=== PATIENT | male | born 1955 | race Caucasian/White ===

== ENCOUNTER → 2019-09-03 | Outpatient (CLI) | payer MEDICARE, OTHER | LOC: M.CT 10:40 | DX: I71.2 Thoracic aortic aneurysm, without rupture (principal); I25.10 Atherosclerotic heart disease of native coronary artery without angina pectoris; J98.4 Other disorders of lung ==

== ENCOUNTER 2020-04-12 09:22 | Inpatient (IN) | payer MEDICARE, OTHER ==
[~2020-04-12] VITALS: Ht 170.2 cm; Wt 99.3 kg
[2020-04-12 09:29] VITALS: BP 155/101
[2020-04-12] MEDS ORDERED: SERTRALINE HCL50 MG PO (09:44)
[2020-04-12] MEDS ORDERED: LISINOPRIL2.5 MG PO (09:44)
[2020-04-12] MEDS ORDERED: HYDROCHLOROTHIA25 M2 PO (09:44)
[2020-04-12] MEDS ORDERED: SYMBICORT160 MCG/4. INH (09:45)
[2020-04-12] MEDS ORDERED: LIPITOR40 MG PO (09:45)
[2020-04-12] MEDS ORDERED: PROAIR HFA8.5 GM INH (09:45)
[2020-04-12 09:54] LABS: ABSOLUTE BASOPHILS 0.1 thou/uL (0.0-0.2); ABSOLUTE EOSINOPHILS 0.1 thou/uL (0.0-0.7); ABSOLUTE LYMPHOCYTES 0.9 thou/uL (0.8-5.3); ABSOLUTE NEUTROPHILS 8.5 thou/uL (1.6-8.1); BASOPHILS 0.5 %; EOSINOPHILS 1.4 %; HEMATOCRIT 42.4 % (42.0-52.0); HEMOGLOBIN 14.5 gm/dL (14.0-18.0); LYMPHOCYTES 8.1 %; MCH 31.6 pg (26.0-34.0); MCHC 34.2 g/dL (28.0-37.0); MCV 92.3 fL (80.0-100.0); MONOCYTES 9.9 %; MPV 7.8 fl. (7.2-11.1); NUCLEATED RBCS 0 /100WBC; PLATELET COUNT* 377 thou/uL (150-400); POLYS 80.1 %; RBC 4.59 mil/uL (4.50-6.00); RDW-CV 13.9 % (10.5-14.5); WBC 10.6 thou/uL (4.0-11.0)
[2020-04-12 10:15] LABS: CALCIUM 9.7 mg/dL (8.5-10.1); CREATININE 1.2 mg/dL (0.6-1.3); POTASSIUM 4.3 mmol/L (3.5-5.1)
[2020-04-12 10:20] LABS: ALBUMIN 3.7 g/dL (3.4-5.0); TOTAL BILIRUBIN 0.8 mg/dL (<0.1-1.0); TOTAL PROTEIN 7.6 g/dL (6.4-8.2)
--- NOTE | 2020-04-12 18:30 | EKG ---
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 : 1955 Requested By: Donna Landon Order Number: [id number] MD: Gianni Cid Measurements Intervals [place] Rate: 93 P: 73 CT: 161 QRS: 51 QRSD: 104 T: 35 QT: 358 QTc: 446 Interpretive Statements Sinus rhythm Borderline ST elevation, lateral leads, consider early repolarization Baseline wander in lead(s) II,III,aVL,aVF No previous ECG available for comparison Electronically Signed On 04-12-2020 18:30:37 CDT by Gianni Cid [email or web address] <ELECTRONICALLY SIGNED> By: Gianni Cid MD, FACC 04/12/20 1830 Gianni Cid MD, FACC /EPI
[2020-04-12 19:55] VITALS: BP 127/82
[2020-04-12 20:00] VITALS: BP 120/70
[2020-04-12] MEDS ORDERED: MULTIVITAMINS1 EAC7 PO (20:49)
[2020-04-12] MEDS ORDERED: POTASSIUM20 PO (20:51)
[2020-04-12] MEDS ORDERED: IRON236 MG PO (20:53)
[2020-04-13] VITALS (7 sets, daily range): BP systolic 114–141; BP diastolic 64–87
[2020-04-13 19:14] LABS: HEMATOCRIT 41.7 % (42.0-52.0); MCH 31.4 pg (26.0-34.0); MCHC 33.6 g/dL (28.0-37.0); MCV 93.3 fL (80.0-100.0); MPV 7.6 fl. (7.2-11.1); NUCLEATED RBCS 0 /100WBC; PLATELET COUNT* 386 thou/uL (150-400); RBC 4.47 mil/uL (4.50-6.00); RDW-CV 14.3 % (10.5-14.5); WBC 18.9 thou/uL (4.0-11.0)
[2020-04-13 19:29] LABS: ALBUMIN 3.4 g/dL (3.4-5.0); CALCIUM 9.4 mg/dL (8.5-10.1); CREATININE 1.3 mg/dL (0.6-1.3); POTASSIUM 4.8 mmol/L (3.5-5.1); TOTAL BILIRUBIN 0.2 mg/dL (<0.1-1.0); TOTAL PROTEIN 7.3 g/dL (6.4-8.2)
[2020-04-13 19:45] LABS: ABSOLUTE LYMPHOCYTES 0.8 thou/uL (0.8-5.3); ABSOLUTE MONOCYTES 0.2 thou/uL (0.0-1.2); PLATELET ESTIMATE ADEQUATE
[2020-04-14 04:19] VITALS: BP 130/81
[2020-04-14 07:46] VITALS: BP 121/86
[2020-04-14 12:00] LABS: BE 1.9 mmol/L (-2 to +3); PCO2 47.4 mmHg (35.0-45.0); PO2 64.2 mmHg (75.0-100.0); pH 7.384 (7.340-7.450)
--- NOTE | 2020-04-14 12:16 | 2DMMODE ---
[place] [address] 2 D/M-MODE ECHOCARDIOGRAM Name: IRAIDA KEITA Room: [address] IN M.R.#: [id number] Admission: 04/13/20 Attend Phys: Gamal Wilhelm Discharge: Date of : 53 Date of Service: 04/14/20 1215 Report #: [id number] THIS REPORT FOR: cc: Heaven Parnell NP, Elizabeth NP Holkins,John Cerrato MD [facility] ~ APPROVED REPORT Study performed: 04/14/2020 09:35:49 EXAM: Comprehensive 2D, Doppler, and color-flow Echocardiogram Patient Location: Bedside BSA: 2.13 HR: 90 bpm BP: 121/86 mmHg Other Information Study Quality: Adequate Indications COPD Dyspnea Angina 2D Dimensions IVSd: 10.42 (7-11mm) LVOT Diam: 21.09 (18-24mm) LVDd: 47.81 mm PWd: 9.17 (7-11mm) Ascending Ao: 40.27 (22-36mm) LVDs: 27.75 (25-40mm) Aortic Root: 39.03 mm Volumes Left Atrial Volume (Systole) LA ESV Index: 28.30 mL/m2 Aortic Valve AoV Peak Yazan.: 1.21 m/s AO Peak Gr.: 5.90 mmHg LVOT Max P.22 mmHg AO Mean Gr.: 3.19 mmHg LVOT Mean P.44 mmHg LVOT Max V: 0.90 m/s AO V2 VTI: 19.75 cm LVOT Mean V: 0.54 m/s ALDAIR (VTI): 2.47 cm2 LVOT V1 VTI: 13.95 [place] [address] 2 D/M-MODE ECHOCARDIOGRAM Name: IRAIDA KEITA Room: [address] M.R.#: [id number] Admission: 04/13/20 Attend Phys: Gamal Wilhelm Discharge: Date of : 53 Date of Service: 04/14/20 1215 Report #: [id number] Mitral Valve E/A Ratio: 0.58 MV Decel. Time: 263.14 ms MV E Max Yazan.: 0.56 m/s MV PHT: 76.31 ms MVA (PHT): 2.88 cm2 TDI E/Lateral E': 7.00 E/Medial E': 9.33 Medial E' Yazan.: 0.06 m/s Lateral E' Yazan.: 0.08 m/s Pulmonary Valve PV Peak Yazan.: 1.23 m/s PV Peak Gr.: 6.08 mmHg Tricuspid Valve RAP Estimate: 5.00 mmHg TR Peak Gr.: 9.79 mmHg RVSP: 14.79 mmHg PA Pressure: 14.79 mmHg Left Ventricle The left ventricle is normal size. There is normal LV segmental wall motion. There is normal left ventricular wall thickness. Left ventricular systolic function is normal. The left ventricular ejection fraction is within the normal range. LVEF is 60-65%. Grade I - abnormal relaxation pattern. Right Ventricle The right ventricle is normal size. The right ventricular systolic function is normal. Atria The left atrium size is normal. The right atrium size is normal. Aortic Valve Mild aortic valve sclerosis. No aortic regurgitation is present. There is no aortic valvular stenosis. Mitral Valve The mitral valve is normal in structure. There is no mitral valve regurgitation noted. No evidence of mitral valve stenosis. Tricuspid Valve The tricuspid valve is normal in structure. Trace tricuspid [place] [address] 2 D/M-MODE ECHOCARDIOGRAM Name: IRAIDA KEITA Toby Room: [address] IN [facility]#: [id number] Admission: 04/13/20 Attend Phys: Gamal Wilhelm Discharge: Date of : 53 Date of Service: 04/14/20 1215 Report #: [id number] Pulmonic Valve The pulmonary valve is normal in structure. There is no pulmonic valvular regurgitation. Great Vessels The aortic root is normal in size. The ascending aorta is mildly dilated. IVC is not well visualized. Pericardium There is no pericardial effusion. <Conclusion> The left ventricle is normal size. Left ventricular systolic function is normal. The left ventricular ejection fraction is within the normal range. LVEF is 60-65%. Grade I - abnormal relaxation pattern. The right ventricle is normal size. Mild aortic valve sclerosis. No aortic regurgitation is present. There is no aortic valvular stenosis. The mitral valve is normal in structure. The tricuspid valve is normal in structure. There is no pericardial effusion. There is normal LV segmental wall motion. <ELECTRONICALLY SIGNED> By: John Collazo MD, FACC 04/14/20 1215 14 14 John Collazo MD, FACC /INF
[2020-04-14 12:45] VITALS: BP 126/78
[2020-04-14 16:00] VITALS: BP 146/75
[2020-04-14 20:00] VITALS: BP 124/82
[2020-04-15] VITALS (7 sets, daily range): BP systolic 108–143; BP diastolic 58–89
[2020-04-15 05:29] LABS: HEMOGLOBIN 13.3 gm/dL (14.0-18.0); MCH 31.2 pg (26.0-34.0); MCHC 33.2 g/dL (28.0-37.0); MCV 93.8 fL (80.0-100.0); RBC 4.26 mil/uL (4.50-6.00); RDW-CV 14.1 % (10.5-14.5); WBC 15.5 thou/uL (4.0-11.0)
[2020-04-15 05:44] LABS: CALCIUM 9.3 mg/dL (8.5-10.1); CREATININE 1.3 mg/dL (0.6-1.3); MAGNESIUM 2.1 mg/dL (1.8-2.4); POTASSIUM 4.9 mmol/L (3.5-5.1)
--- NOTE | 2020-04-15 10:46 | CON ---
[address] [address] CONSULTATION Name: NEELAIRAIDA Toby Room: [address] IN M.R.#: [id number] Admission: 04/13/20 Attend Phys: Gamal He, Discharge: Date of : 53 Report #: [id number] THIS REPORT FOR: //name// cc: Heaven Parnell NP, Elizabeth NP ~ THIS REPORT FOR: //name// DATE OF SERVICE: 04/12/2020 CARDIOLOGY CONSULTATION Seen in the ER on 04/12/2020. HISTORY OF PRESENT ILLNESS: The patient is a pleasant 64-year-old male who presented with dyspnea, is in the context of significant chronic obstructive pulmonary disease. During the evaluation in the ER, he noted chest discomfort. EKG revealed no acute ischemic changes. Pain remitted after he was given medication for his anxiety in the context of his dyspnea. Risk factors include significant prior cigarette smoking history and positive family history in a grandparent. PAST MEDICAL HISTORY: Remarkable for COPD and weight excess. SOCIAL HISTORY: There is a significant prior cigarette smoking history. REVIEW OF SYSTEMS: Remarkable for the following: PULMONARY: Chronic dyspnea. GENERAL: Moderate weight excess. PHYSICAL EXAMINATION: GENERAL: Demonstrates a moderately overweight middle-aged male. VITAL SIGNS: Blood pressure 140/70, pulse rate is 92, respirations are 18 per minute. NECK: Jugular venous pressure is normal. CHEST: Reveals decreased breath sounds diffusely with prolonged expiratory phase. CARDIAC: Reveals normal first and second heart sounds without murmurs or gallops. ABDOMEN: Moderately obese. EXTREMITIES: Revealed mild bilateral lower extremity edema. [facility] [address] [place] [address] CONSULTATION Name: IRAIDA KEITA Room: [address] IN .R.#: [id number] Admission: 04/13/20 Attend Phys: Gamal He, Discharge: Date of : 53 Report #: [id number] EKG again reveals sinus rhythm with a minor nonspecific intraventricular conduction delay and no acute ischemic changes. Remainder of lab is pending. IMPRESSION: 1. Atypical chest pain. 2. Chronic obstructive pulmonary disease with exacerbation, on admission. 3. Tobacco habituation. 4. Weight excess. RECOMMENDATIONS: 1. Agree with efforts to focus that is COPD. 2. In light of the atypical chest pain and a negative nuclear stress test in October of this year, I would not recommend repeat stress testing or cardiac catheterization in this context. Critical care time is 30 minutes from 1615 to 1645 on 04/12/2020. <ELECTRONICALLY SIGNED> By: John Collazo MD, FACC 04/15/20 1046 45 2041John Collazo MD, FACC /nt
--- NOTE | 2020-04-15 12:19 | CON ---
[address] [address] CONSULTATION Name: NEELAIRAIDA Toby Room: [address] IN M.R.#: [id number] Admission: 04/13/20 Attend Phys: Gamal He, Discharge: Date of : 53 Report #: [id number] THIS REPORT FOR: //name// cc: Heaven Parnell NP, Elizabeth NP ~ THIS REPORT FOR: //name// DATE OF SERVICE: 04/13/2020 REQUESTING PHYSICIAN: Consult has been requested by Gamal He MD INDICATION FOR CONSULTATION: Shortness of breath. HISTORY OF PRESENT ILLNESS: This is a 64-year-old gentleman with past medical history includes a history of COPD as well as obstructive sleep apnea. The patient is intolerant of CPAP and BiPAP. He is now admitted here with increasing shortness of breath over 3-4 days. He has had a cough. There is no sputum production. He did have chest pain associated with respiration and coughing. On initial admission, this has improved now. He does not have upper respiratory complaints. He has had some foot pain, but there is no leg pain. There is no calf pain. He has had disturbed sleep at night as well as sleepiness during the day longstanding, which is at baseline. The patient answers to the negative for 10 questions for review of systems except as mentioned above. PAST MEDICAL HISTORY: Chronic obstructive pulmonary disease, not on oxygen at home, obstructive sleep apnea, unable to use CPAP or BiPAP due to claustrophobia, hypertension, possible history of depression, hyperlipidemia. SOCIAL HISTORY: There is an extensive history of smoking. No known history of heavy alcohol use or illegal drug use. ALLERGIES: CODEINE. CURRENT MEDICATIONS: List in [employer] reviewed. HOME MEDICATIONS: List in [employer] reviewed. FAMILY HISTORY: COPD. PHYSICAL EXAMINATION: GENERAL: Alert, awake and oriented, does not appear to be in any distress at this time. VITAL SIGNS: Pulse of 98 and a blood pressure of 126/81. He is breathing around 17-18. He is afebrile with a temperature of 36.5. He is maintaining O2 saturation of 95% on 2.5 liters oxygen [place] [address] CONSULTATION Name: IRAIDA KEITA Room: [address] IN [facility]#: [id number] Admission: 04/13/20 Attend Phys: Gamal He, Discharge: Date of : 53 Report #: [id number] HEENT: Head is normocephalic and atraumatic. NECK: Does not show raised JVP, asymmetry, mass or lymph nodes. This appears to have a narrow airway. Throat was not examined as the patient was eating dinner. CHEST: Symmetrical expansion on inspection and palpation. On auscultation, breath sounds are significantly decreased with expirations prolonged. I do not hear any added sounds. HEART: Regular, no murmur. ABDOMEN: Mildly distended, nontender. EXTREMITIES: Lower extremities show no edema, no calf tenderness. SKIN: Dry and intact. NEUROLOGICAL: Moves all extremities bilaterally and equally and spontaneously with no focal deficit identified. LABORATORY DATA: The patient's chest x-ray is reviewed. There is a small radiopaque density in the left lung base, likely atelectasis. Small infiltrate in this region is not ruled out; however, I do not see any definite infiltrate. There is also small radiopaque density in the right middle lobe region. Again, a small infiltrate will be possible; however, I do not see any definite infiltrate. There is no pulmonary vascular congestion. The patient's lab work from the ER yesterday in [facility] reviewed and includes COVID-19 screen, which is negative. ASSESSMENT AND PLAN: 1. Acute respiratory insufficiency. Primarily, this appears to be secondary to bronchospasm. Thromboembolism also does need to be ruled out. 2. Chronic obstructive pulmonary disease exacerbation. I will continue with Solu-Medrol as currently prescribed. I changed his nebulized bronchodilators to scheduled. Chest x-ray as above. I do not see any definite infiltrate. Regardless, I feel that it is reasonable to empirically cover with ceftriaxone as ordered by Dr. He and will continue with the same. 3. Chest pain, likely musculoskeletal. However, pulmonary emboli are not ruled out at this point. I recommend that we obtain labs including D-dimer now. If elevated, then I will consider obtaining a CTA chest. I would also like to look at the patient's right heart pressures and therefore, a 2D echo is also ordered. 4. Obstructive sleep apnea. Unfortunately, the patient is unable to use a CPAP or BiPAP. Recommend obtaining a nocturnal pulse oximetry, been off oxygen to assess if oxygen needs to be continued while asleep long-term. Weight loss is also strongly recommended. If the patient has been sleeping on his back, if he is able to sleep on his sides, these may be preferable. 5. Deep vein thrombosis prophylaxis, he is on Lovenox. 6. Gastrointestinal prophylaxis, already on Protonix. [address] [address] CONSULTATION Name: IRAIDA KEITA Room: [address] [facility] IN .R.#: [id number] Admission: 04/13/20 Attend Phys: Gamal He, Discharge: Date of : 53 Report #: [id number] Thanks for this consultation. <ELECTRONICALLY SIGNED> By: Aston Whitmore MD 04/15/20 1219 1850 [id number] Whitmore MD /nt
[2020-04-16] VITALS: BP 125/80
[2020-04-16 04:00] VITALS: BP 125/83
[2020-04-16 05:39] LABS: ABSOLUTE LYMPHOCYTES 0.6 thou/uL (0.8-5.3); ABSOLUTE MONOCYTES 1.2 thou/uL (0.0-1.2); ABSOLUTE NEUTROPHILS 15.5 thou/uL (1.6-8.1); BASOPHILS 0.2 %; HEMOGLOBIN 13.4 gm/dL (14.0-18.0); LYMPHOCYTES 3.4 %; MCH 31.1 pg (26.0-34.0); MCHC 33.5 g/dL (28.0-37.0); MCV 92.8 fL (80.0-100.0); MPV 7.8 fl. (7.2-11.1); NUCLEATED RBCS 0 /100WBC; PLATELET COUNT* 331 thou/uL (150-400); POLYS 89.4 %; RBC 4.31 mil/uL (4.50-6.00); RDW-CV 14.5 % (10.5-14.5); WBC 17.3 thou/uL (4.0-11.0)
[2020-04-16 07:04] LABS: CALCIUM 9.3 mg/dL (8.5-10.1); CREATININE 1.4 mg/dL (0.6-1.3); POTASSIUM 4.7 mmol/L (3.5-5.1)
[2020-04-16 08:03] VITALS: BP 135/82
[2020-04-16 12:00] VITALS: BP 135/73
[2020-04-16 16:00] VITALS: BP 135/75
[2020-04-16 20:10] VITALS: BP 132/76
[2020-04-17] VITALS: BP 139/92
[2020-04-17 04:42] VITALS: BP 126/84
[2020-04-17 04:51] LABS: HEMATOCRIT 41.7 % (42.0-52.0); MCH 31.3 pg (26.0-34.0); MCHC 33.6 g/dL (28.0-37.0); MCV 93.1 fL (80.0-100.0); MPV 8.1 fl. (7.2-11.1); RBC 4.48 mil/uL (4.50-6.00); RDW-CV 14.2 % (10.5-14.5); WBC 19.5 thou/uL (4.0-11.0)
[2020-04-17 05:18] LABS: CALCIUM 9.4 mg/dL (8.5-10.1); CREATININE 1.2 mg/dL (0.6-1.3); MAGNESIUM 2.3 mg/dL (1.8-2.4); POTASSIUM 5.2 mmol/L (3.5-5.1); TOTAL BILIRUBIN 0.4 mg/dL (<0.1-1.0); TOTAL PROTEIN 6.8 g/dL (6.4-8.2)
[2020-04-17 09:17] VITALS: BP 123/75
[2020-04-17 13:22] VITALS: BP 110/75
[2020-04-17 16:00] VITALS: BP 118/67
[2020-04-18] VITALS (7 sets, daily range): BP systolic 96–141; BP diastolic 63–88
[2020-04-18 12:58] LABS: CALCIUM 9.5 mg/dL (8.5-10.1); CREATININE 1.4 mg/dL (0.6-1.3); POTASSIUM 5.1 mmol/L (3.5-5.1)
[2020-04-18 19:43] LABS: URINE BILIRUBIN NEGATIVE (Negative); URINE BLOOD 2+ (Negative); URINE COLOR YELLOW; URINE GLUCOSE-RANDOM NEGATIVE (Negative); URINE KETONES NEGATIVE (Negative); URINE LEUKOCYTES-REFLEX NEGATIVE (Negative); URINE NITRITE-REFLEX NEGATIVE (Negative); URINE PROTEIN NEGATIVE (Negative); URINE UROBILINOGEN 0.2 E.U./dl (0.2-1.0)
[2020-04-18 19:44] LABS: URINE CLARITY HAZY
[2020-04-18 19:50] LABS: BACTERIA-REFLEX None Seen /HPF (None Seen); CASTS None Seen /LPF (None Seen); CRYSTALS None Seen /LPF (None Seen); SQUAMOUS 0-3 Few /LPF (0-3); URINE RBC 3-10 Few /HPF (0-2); URINE WBC-REFLEX None Seen /HPF (0-5)
[2020-04-19] VITALS: BP 124/76
[2020-04-19 04:00] VITALS: BP 110/72
[2020-04-19 05:05] LABS: HEMATOCRIT 43.1 % (42.0-52.0); HEMOGLOBIN 14.2 gm/dL (14.0-18.0); MCH 30.5 pg (26.0-34.0); MCHC 32.9 g/dL (28.0-37.0); MCV 92.7 fL (80.0-100.0); MPV 8.1 fl. (7.2-11.1); NUCLEATED RBCS 0 /100WBC; PLATELET COUNT* 334 thou/uL (150-400); RBC 4.65 mil/uL (4.50-6.00); RDW-CV 14.3 % (10.5-14.5); WBC 15.5 thou/uL (4.0-11.0)
[2020-04-19 05:13] LABS: ALBUMIN 2.6 g/dL (3.4-5.0); CALCIUM 8.9 mg/dL (8.5-10.1); CREATININE 1.3 mg/dL (0.6-1.3); MAGNESIUM 2.3 mg/dL (1.8-2.4); POTASSIUM 4.8 mmol/L (3.5-5.1); TOTAL BILIRUBIN 0.3 mg/dL (<0.1-1.0); TOTAL PROTEIN 6.3 g/dL (6.4-8.2)
[2020-04-19 07:11] LABS: ABSOLUTE LYMPHOCYTES 1.2 thou/uL (0.8-5.3); ABSOLUTE MONOCYTES 0.5 thou/uL (0.0-1.2); ABSOLUTE NEUTROPHILS 13.8 thou/uL (1.6-8.1); PLATELET ESTIMATE ADEQUATE
[2020-04-19 07:30] VITALS: BP 105/74
[2020-04-19 12:03] VITALS: BP 90/56
[2020-04-19 16:23] VITALS: BP 104/70
[2020-04-19 20:00] VITALS: BP 121/72
[2020-04-20] VITALS: BP 104/78
[2020-04-20 03:44] VITALS: BP 126/77
[2020-04-20 08:00] VITALS: BP 101/67
[2020-04-20] MEDS ORDERED: MIRALAX17 GM PO (10:01)
[2020-04-20] MEDS ORDERED: PROTONIX40 M2 PO (10:01)
[2020-04-20] MEDS ORDERED: SINGULAIR 10 MG10 M1 PO (10:01)
[2020-04-20] MEDS ORDERED: PREDNISONE 10 M10 MG PO (10:01)
[2020-04-20 12:01] VITALS: BP 101/67
[2020-04-20] MEDS ORDERED: AMBIEN 10 MG TA10 MG PO (13:46)
[2020-04-20] MEDS ORDERED: LORAZEPAM 0.50.5 MG PO (13:46)
[2020-04-20 14:06] VITALS: BP 101/67
--- NOTE | 2020-04-20 18:01 | CON ---
[address] [address] CONSULTATION Name: IRAIDA KEITA Room: [address] IN M.R.#: [id number] Admission: 04/13/20 Attend Phys: Gamal He, Discharge: 04/20/20 Date of : 53 Report #: [id number] THIS REPORT FOR: //name// cc: Heaven Parnell NP, Elizabeth NP ~ THIS REPORT FOR: //name// DATE OF SERVICE: 04/19/2020 HISTORY OF PRESENT ILLNESS: This is a pleasant 64-year-old male who has been admitted with a COPD exacerbation. The patient has been consulted for evaluation of abdominal pain. The patient has a known past medical history of colon cancer, which required hemicolectomy. The patient saw his GI doctor last time 5 years back. The patient reports pain in the epigastric region that is worsened with food. Denies any nausea, vomiting, hematemesis, hematochezia or any recent weight loss. PAST MEDICAL HISTORY: COPD, colon cancer and hypertension. PAST SURGICAL HISTORY: Appendectomy and hemicolectomy. SOCIAL HISTORY: The patient quit smoking in the past. Denies alcohol or recreational drug use. FAMILY HISTORY: No family history of colon cancer. REVIEW OF SYSTEMS: A comprehensive 10-point review of systems is negative except for what was mentioned in the HPI. PHYSICAL EXAMINATION: GENERAL: The patient is alert, awake, oriented x 3. HEENT: Pupils are equal, round, reactive to light and accommodation. Mucous membranes are moist. There is no congestion. LUNGS: Clear to auscultation bilaterally. CARDIOVASCULAR: Rate and rhythm regular, S1, S2 present. ABDOMEN: Soft. There is no distention, guarding or rigidity. EXTREMITIES: Warm, well perfused. There is no edema. LABORATORY DATA: WBC count 15.5, hemoglobin 14.2, hematocrit 43.1, platelet count 334. Sodium 128, potassium 4.8, chloride 95, bicarbonate 30, BUN 44, creatinine 1.3, total bilirubin 0.3, AST 22, ALT 42, alkaline phosphatase 96. ASSESSMENT AND PLAN: A pleasant 64-year-old gentleman who has been admitted for chronic obstructive pulmonary disease exacerbation. The patient is presenting for evaluation of epigastric abdominal pain. The GI service has been consulted for evaluation of this. We can consider outpatient [place] [address] CONSULTATION Name: IRAIDA KEITA Room: [address] IN [facility]#: [id number] Admission: 04/13/20 Attend Phys: Gamal He, Discharge: 04/20/20 Date of : 53 Report #: [id number] inpatient endoscopy or interventions are warranted at this time. Thank you for this consultation. <ELECTRONICALLY SIGNED> By: Reza Warren MD 04/20/20 1801 1724 174Lamine Warren MD /randolph
== END 2020-04-20 14:05 | disposition home or self-care (01) | DRG 193 ==
LOC: M.ERS 09:22 → M.TBA-ER 13:02 → M.2W 20:15
PROVIDERS: Internal Medicine Critical Care Medicine; Personal Emergency Response Attendant; ADMIT Family Medicine; ATTEND Family Medicine
PROC: 5A09357 Assistance with Respiratory Ventilation, Less than 24 Consecutive Hours, Continuous Positive Airway Pressure (ICD-10-PCS; principal; 2020-04-16)
PROC: 5A09357 Assistance with Respiratory Ventilation, Less than 24 Consecutive Hours, Continuous Positive Airway Pressure (ICD-10-PCS; 2020-04-17)
DX: J18.9 Pneumonia, unspecified organism (principal); J96.01 Acute respiratory failure with hypoxia; R65.10 Systemic inflammatory response syndrome (SIRS) of non-infectious origin without acute organ dysfunction; J44.1 Chronic obstructive pulmonary disease with (acute) exacerbation; J98.11 Atelectasis; E87.1 Hypo-osmolality and hyponatremia; J44.0 Chronic obstructive pulmonary disease with (acute) lower respiratory infection; F41.9 Anxiety disorder, unspecified; F32.9 Major depressive disorder, single episode, unspecified; E66.01 Morbid (severe) obesity due to excess calories; K21.9 Gastro-esophageal reflux disease without esophagitis; G47.33 Obstructive sleep apnea (adult) (pediatric); E78.5 Hyperlipidemia, unspecified; R14.0 Abdominal distension (gaseous); N40.0 Benign prostatic hyperplasia without lower urinary tract symptoms; I10 Essential (primary) hypertension; R07.89 Other chest pain; Z20.828 Contact with and (suspected) exposure to other viral communicable diseases; Z88.5 Allergy status to narcotic agent; Z68.34 Body mass index [BMI] 34.0-34.9, adult; Z87.891 Personal history of nicotine dependence; Z79.899 Other long term (current) drug therapy; Z90.49 Acquired absence of other specified parts of digestive tract; Z85.038 Personal history of other malignant neoplasm of large intestine